=== PATIENT | female | born 1995 | race Hispanic/Latino ===

== ENCOUNTER 2020-05-24 17:15 | Emergency (ER) | payer MEDICAID, OTHER ==
[2020-05-24 18:20] LABS: #Basophils 0.1 thou/uL (0.0-0.2); #Eosinphils 0.1 thou/uL (0.0-0.7); #Lymphocytes 2.6 thou/uL (1.20-3.40); #Monocytes 0.6 thou/uL (0.11-0.59); #Neutrophils 10.6 thou/uL (1.40-6.50); %Basophils 0.4 % (0.0-1.0); %Eosinophils 0.6 % (0.0-10.0); %Lymphocytes 18.9 % (21.0-51.0); %Neutrophils 76.1 % (42.0-75.0); Hemoglobin 12.2 g/dL (12.0-16.0); Mean Corpuscular HGB CONC 34.5 g/dL (32.0-36.0); Mean Corpuscular Hemoglobin 30.9 pg (27.0-31.0); Mean Corpuscular Volume 89.3 fL (78.0-98.0); Mean Platelet Volume 9.3 fL (7.4-10.4); Platelet Count 209 thou/uL (130-400); RBC Distribution Width 14.8 % (11.5-14.5); Red Blood Cell (RBC) Count 3.97 mill/uL (4.20-5.40)
--- NOTE | 2020-05-24 18:42 | ULT ---
ULTRASOUND OBSTETRICAL LIMITED: 05/24/20 HISTORY: 25-year-old female with vaginal bleeding. FINDINGS: number: Membreno. lie: Breech. Maternal cervix: 4.5 cm and closed. Placenta: Anterior. No placenta previa and no abruption. Amniotic fluid volume: ERICK 14 cm. heart rate: 133 bpm. anatomy not evaluated in detail. biometry: Head circumference (HC): 14.8 cm 18w 0d Biparietal diameter (BPD): 4.0 cm 18w 1d Abdominal circumference (AC): 1.6 cm 18w 2d Femur length (FL): 2.5 cm 17w 4d Average ultrasound age (AUA): 18w 0d Estimated date of delivery (ALAN): 10/25/2020. Last menstrual period (LMP): 01/13/20 Gestational age by LMP: 18w 6d Estimated weight (EFW): 217 g +/- 32 g (0 lb. 8 oz +/- 1 oz). IMPRESSION: 1. Live second trimester intrauterine gestation. 2. Estimated gestational age of 18 weeks, 0 days. 3. Breech lie. 4. No placenta previa or abruptio placentae. JOSAFAT Hernandez POS: [place]
[2020-05-24 18:46] LABS: ALT (SGPT) 18 U/L (8-55); AST (SGOT) 19 U/L (5-34); Albumin 3.7 g/dL (3.5-5.0); Alkaline Phosphatase 63 U/L (40-110); Anion Gap 14 mmol/L (10-20); BUN (Urea Nitrogen) 9 mg/dL (7.0-18.7); Bilirubin, Total 0.2 mg/dL (0.2-1.2); Calc. Creatinine Clearance 0 mL/min (70-130); Calcium 9.7 mg/dL (7.8-10.44); Carbon Dioxide 22 mmol/L (22-29); Chloride 106 mmol/L (98-107); Estimated GFR-MDRD Greater than 90; Globulin 3.5 g/dL (2.4-3.5); Glucose 84 mg/dL (70-105); Potassium 4.1 mmol/L (3.5-5.1); Protein, Total 7.2 g/dL (6.0-8.3); Sodium 138 mmol/L (136-145)
== END 2020-05-24 19:22 | disposition home or self-care (01) ==
LOC: ERS 17:15
DX: O20.9 Hemorrhage in early pregnancy, unspecified (principal); O99.342 Other mental disorders complicating pregnancy, second trimester; F41.9 Anxiety disorder, unspecified; F32.9 Major depressive disorder, single episode, unspecified; Z3A.18 18 weeks gestation of pregnancy
CPT/HCPCS: 36415; 76815; 80053; 85025